=== PATIENT | female | born 1990 | race African-American/Black ===

== ENCOUNTER 2017-02-26 01:39 | Emergency (ER) | payer OTHER ==
[2017-02-26] MEDS ORDERED: Ketorolac Tromethamine 30 MG/ML VIAL ONE (01:55)
[2017-02-26 02:22] LABS: #Eosinphils 0.4 thou/uL (0.0-0.7); #Lymphocytes 3.6 thou/uL (1.20-3.40); #Monocytes 0.5 thou/uL (0.11-0.59); #Neutrophils 4.9 thou/uL (1.40-6.50); %Basophils 0.5 % (0.0-1.0); %Eosinophils 4.5 % (0.0-10.0); %Lymphocytes 38.4 % (21.0-51.0); %Monocytes 5.2 % (0.0-10.0); Hematocrit 39.1 % (36.0-47.0); Mean Platelet Volume 8.3 fL (7.4-10.4); Red Blood Cell (RBC) Count 4.07 mill/uL (4.20-5.40); White Blood Cell (WBC) Count 9.5 thou/uL (4.8-10.8)
[2017-02-26 02:34] LABS: ALT (SGPT) 10 U/L (8-55); AST (SGOT) 13 U/L (5-34); Alkaline Phosphatase 70 U/L (40-150); Anion Gap 7 mmol/L (10-20); BUN (Urea Nitrogen) 10 mg/dL (7.0-18.7); Bilirubin, Total 1.1 mg/dL (0.2-1.2); Calc. Creatinine Clearance 0 mL/min (70-130); Calcium 9.2 mg/dL (7.8-10.44); Carbon Dioxide 25 mmol/L (22-29); Chloride 107 mmol/L (98-107); Estimated GFR-MDRD Greater than 90; Globulin 3.5 g/dL (2.4-3.5); Lipase 39 U/L (8-78); Protein, Total 7.6 g/dL (6.0-8.3)
[2017-02-26] MEDS ORDERED: Potassium Chloride 20 MEQ TAB ONE (03:33)
[2017-02-26 04:01] LABS: Bilirubin Negative (Negative); Blood, Urine Negative (Negative); Glucose, Urine (Dipstick) Negative (Negative); Ketone, Urine Negative (Negative); Nitrite Negative (Negative); Protein, Urine (Dipstick) Negative (Neg-Trace); Urobilinogen 0.2 mg/dL (0.2-1.0)
--- NOTE | 2017-02-26 07:59 | CT ---
PRELIMINARY REPORT/[facility]/EMERGENCY AFTER HOURS PROCEDURE: EXAM: CT Abdomen and Pelvis Without Intravenous Contrast CLINICAL HISTORY: 26 years old, female; Pain; Abdominal pain; Localized; Left; Patient HX: Er 13; F26 presents to ed C /O abd pain, onset 2330 yesterday. Location is l side. Similar pmh with dx of nephrolithiasis. Denie s n/v, urinary symptoms, fever. Lmp unknown. Pt recently began taking bcp. TECHNIQUE: Axial computed tomography images of the abdomen and pelvis without intravenous contrast. Coronal reformatted images were created and reviewed. COMPARISON: No relevant prior studies available. FINDINGS: Lower thorax: No acute findings. ABDOMEN: Liver: Unremarkable. Gallbladder and bile ducts: Unremarkable. No calcified stones. No ductal dilation. Pancreas: Unremarkable. No ductal dilation. Spleen: Unremarkable. No splenomegaly. Adrenals: Unremarkable. No mass. Kidneys and ureters: Nonobstructing left renal calculi. No obstructing stones. No hydronephrosis. Stomach and bowel: Unremarkable. No obstruction. No mucosal thickening. Appendix: The appendix is normal. PELVIS: Bladder: Unremarkable. No stones. Reproductive: Unremarkable as visualized. ABDOMEN and PELVIS: Intraperitoneal space: Unremarkable. No free air. No significant fluid collection. Bones/joints: No acute fracture. No dislocation. Soft tissues: Unremarkable. Vasculature: Unremarkable. No abdominal aortic aneurysm. Lymph nodes: Unremarkable. No enlarged lymph nodes. IMPRESSION: No acute findings. Nonobstructing left renal calculi Thank you for allowing us to participate in the care of your patient. Dictated and Authenticated by: Clive Rinaldi MD 02/26/2017 3:29 AM Central Time ([place] \T\ [place]) FINAL REPORT CT ABDOMEN AND PELVIS WITHOUT CONTRAST: I agree with the preliminary report given by Dr. Clvie Rinaldi of [facility]. POS: [facility]
== END 2017-02-26 04:35 | disposition home or self-care (01) ==
LOC: ERS 01:39
DX: R10.9 Unspecified abdominal pain (principal)
CPT/HCPCS: 74176; 80053; 81003; 83690; 84703; 85025; 96361; 96374; J1885

== ENCOUNTER 2018-03-30 11:23 | Outpatient (CLI) | payer OTHER ==
--- NOTE | 2018-03-30 13:20 | RAD ---
PA AND LATERAL CHEST: History: Abnormal lung sounds. FINDINGS: The heart size is normal. The lungs are expanded without focal areas of consolidation, pneumothorax, or pleural effusions. No acute osseous abnormality is seen. IMPRESSION: No radiographic evidence of acute cardiopulmonary process. POS: [facility]
== END 2018-03-30 11:24 | disposition home or self-care (01) ==
LOC: RAD-FRANK 11:23
PROVIDERS: ATTEND Nurse Practitioner Family
DX: J01.10 Acute frontal sinusitis, unspecified (principal); R09.89 Other specified symptoms and signs involving the circulatory and respiratory systems; R09.81 Nasal congestion; R05 Cough
CPT/HCPCS: 71046

== ENCOUNTER 2021-06-14 06:59 | Outpatient (CLI) | payer BC | END 2021-06-14 07:00 | disposition home or self-care (01) | LOC: BICULT 06:59 | PROVIDERS: ATTEND Internal Medicine | DX: I10 Essential (primary) hypertension (principal) | CPT/HCPCS: 76770; 93975 ==